=== PATIENT | female | born 1980 | race American Indian/Alaskan Native ===

== ENCOUNTER 2016-09-26 16:01 | Emergency (ER) | payer MEDICAID ==
[2016-09-26 16:09] VITALS: BMI 21.7
[2016-09-26 16:22] VITALS: TEMP 98.5
[2016-09-26] MEDS ORDERED: Sodium Chloride 0.9% 1,000 ML IV ONE (16:44)
[2016-09-26] MEDS ORDERED: Aspirin 325 mg EC Tablets PO STA (16:44)
[2016-09-26 17:17] LABS: BASO # 0.1 K/uL (0.0-0.2); BASO % 0.9 % (0.0-2.0); EOS # 0.1 K/uL (0.0-0.7); EOS % 1.1 % (0.0-4.0); LYMPH # 2.2 K/uL (1.0-4.3); LYMPH % 38.9 % (20.0-40.0); MEAN CELL VOLUME 87.9 fL (81.0-99.0); MEAN CORPUSCULAR HEMOGLOBIN 29.5 pg (27.0-31.0); MEAN CORPUSCULAR HGB CONC 33.5 g/dL (33.0-37.0); MEAN PLATELET VOLUME 9.4 fL (7.2-11.7); MONO # 0.6 K/uL (0.0-0.8); MONO % 9.9 % (0.0-10.0); RED CELL DISTRIBUTION WIDTH 14.4 % (11.5-14.5); WHITE BLOOD COUNT 5.6 K/uL (4.8-10.8)
--- NOTE | 2016-09-26 17:18 | RAD ---
HISTORY: chest pain COMPARISON: No prior. TECHNIQUE: Chest PA and lateral FINDINGS: LUNGS: No active pulmonary disease. PLEURA: No significant pleural effusion identified. No pneumothorax apparent. CARDIOVASCULAR: Normal. Mild dextroscoliosis centered in the lower thoracic region. OSSEOUS STRUCTURES: VISUALIZED UPPER ABDOMEN: Normal. OTHER FINDINGS: None. IMPRESSION: No acute cardiopulmonary disease.
[2016-09-26 17:26] LABS: CHLORIDE 101 mmol/L (98-107)
[2016-09-26 17:27] LABS: SODIUM 136 mmol/L (132-148)
[2016-09-26] MEDS ORDERED: Sodium Chloride 0.9% 1,000 ML ONE (17:28)
[2016-09-26] MEDS ORDERED: Aspirin 325 mg EC Tablets PO ONE (17:28)
[2016-09-26 17:29] LABS: ALB/GLOB RATIO 1.3 (1.0-2.1); AST/SGOT 19 U/L (14-36); BILIRUBIN,TOTAL 0.9 mg/dL (0.2-1.3); CARBON DIOXIDE 26 mmol/L (22-30); GFR AFRICAN-AMERICAN > 60; TOTAL PROTEIN 7.8 g/dL (6.3-8.3)
[2016-09-26 17:30] LABS: ALKALINE PHOSPHATASE 64 U/L (38-126); ALT/SGPT 23 U/L (9-52); BLOOD UREA NITROGEN 15 mg/dL (7-17); CALCIUM 9.2 mg/dl (8.6-10.4); GLUCOSE,RANDOM 70 mg/dL (65-105)
[2016-09-26 17:31] LABS: INR 1.1
[2016-09-26 17:33] LABS: RBC URINE 11 /hpf (0-3); URINE BILIRUBIN NEGATIVE (NEGATIVE); URINE BLOOD 1+ (NEGATIVE); URINE COLOR Yellow (YELLOW); URINE GLUCOSE (UA) NORMAL (Normal); URINE KETONE NEGATIVE (NEGATIVE); URINE LEUKOCYTE ESTERASE NEG Leu/uL (Negative); URINE PROTEIN NEGATIVE (NEGATIVE); URINE UROBILINOGEN NORMAL mg/dL (0.2-1.0); WBC URINE 1 /hpf (0-5)
--- NOTE | 2016-09-26 17:39 | C.PDOC ---
History Of Present Illness 36 year old patient, with a past medical history of hypertension, presents to the emergency department complaining of numbness to left arm for the past 4 days. Patient states the numbness was in her leg yesterday. Today, she reports intermittent tingling and numb sensation radiates from her left hand finger tips to her shoulder and into her neck. Patient also complains of left side neck pain. Patient denies fever, injury, headache, dizziness, bruising, rash, nausea, or vomiting. Of note patient reports 2 losses in the family (cousins) recently related to cardiac issues and patient is concerned for health. Time Seen by Provider: 09/26/16 16:26 Chief Complaint (Nursing): Upper Extremity Problem/Injury History Per: Patient History/Exam Limitations: no limitations Onset/Duration Of Symptoms: Days (1) Current Symptoms Are (Timing): Still Present Quality: "Pain", Other (tingling sensation; numbness) Severity: Moderate Pain Scale Rating Of: 4 Recent travel outside of the [place]: No Past Medical History Reviewed: Historical Data, Nursing Documentation, Vital Signs Vital Signs: Last Vital Signs Temp 98.5 F 09/26/16 18:07 Pulse 54 L 09/26/16 18:07 Resp 20 09/26/16 18:07 BP 150/84 09/26/16 18:07 Pulse Ox 100 09/26/16 18:07 - Medical History PMH: HTN Surgical History: Appendectomy Family History: States: Hypertension - Social History Hx Alcohol Use: Yes Hx Substance Use: No - Immunization History Hx Tetanus Toxoid Vaccination: No Hx Influenza Vaccination: No Hx Pneumococcal Vaccination: No Review Of Systems Constitutional: Negative for: Fever, Other (injury) Eyes: Negative for: Vision Change Cardiovascular: Positive for: Other (chest discomfort). Negative for: Chest Pain, Palpitations Respiratory: Positive for: Shortness of Breath Gastrointestinal: Negative for: Nausea, Vomiting Musculoskeletal: Positive for: Neck Pain, Shoulder Pain (left ), Arm Pain (left) Skin: Negative for: Rash, Bruising Neurological: Positive for: Numbness. Negative for: Headache, Dizziness Physical Exam - Physical Exam Appears: Non-toxic, No Acute Distress Skin: Warm, Dry, Other ((-)erythema or swelling to extremity) Head: Atraumatic, Normacephalic Eye(s): bilateral: Normal Inspection, PERRL, EOMI Ear(s): Bilateral: Normal Nose: Normal Oral Mucosa: Moist Throat: Normal, No Erythema, No Exudate Neck: Normal ROM (with pain), Paracervical Tenderness (left side greater than righ), Supple, Other Chest: Symmetrical Cardiovascular: Rhythm Regular Respiratory: Normal Breath Sounds, No Rales, No Rhonchi, No Wheezing Gastrointestinal/Abdominal: Soft, No Tenderness Back: Normal Inspection, No CVA Tenderness Extremity: Bilateral: No Pedal Edema, Normal Color And Temperature, Normal ROM Neurological/Psych: Oriented x3, Normal Speech, Normal Cognition, Normal Cranial Nerves, No Cerebellar Signs, Normal Motor, Normal Sensation Gait: Steady ED Course And Treatment - Laboratory Results Result Diagrams: 09/26/16 17:09 09/26/16 17:09 Lab Interpretation: No Acute Changes ECG: Interpreted By Me, Viewed By Me ECG Rhythm: Sinus Bradycardia ECG Interpretation: No Acute Changes Rate From EC (bpm) O2 Sat by Pulse Oximetry: 99 (RA) Pulse Ox Interpretation: Normal - Radiology CXR: Interpreted by Me, Viewed By Me CXR Interpretation: Yes: No Acute Disease - Other Rad C-spine X-Ray: Interpreted by Me, Viewed By Me, Read By Radiologist ( Dr. Garnett, Scott LUNA) Interpretation: FINDINGS: Current study reveals no acute compression fractures no retropulsed fragments. The vertebral bodies exhibit normal stature. There is reversal of the normal cervical lordosis however vertebral bodies otherwise exhibit normal alignment. Facets normally aligned. Mild multilevel degenerative spondylosis is present, most notably affecting C6-C7, C5-C6 and to a lesser degree C4-C5 levels. Changes include varying degrees of mild disc space narrowing with small anterior and posterior osteophyte formation former slightly larger than latter. . Prevertebral soft tissues appear grossly unremarkable. IMPRESSION: No acute fracture seen. Mild reversal of the normal cervical lordosis. Mild multilevel degenerative spondylosis as above Medical Decision Making Medical Decision Making: Impression: 36 year old patient with numbness in left arm and neck pain Plan: * EKG * Labs * Chest XR * Ecotrin, IV fluids * C-spine XR Re-assessment: EKG shows Sinus bradycardia, no acute findings Labs reviewed and unremarkable, negative troponin and low suspicion for ACS CXR was normal C-spine shows no acute compression fractures, no retropulsed fragments. The vertebral bodies exhibit normal stature. There is reversal of the normal cervical lordosis however vertebral bodies otherwise exhibit normal alignment. Facets normally aligned. Mild multilevel degenerative spondylosis is present, most notably affecting C6-C7, C5-C6 and to a lesser degree C4-C5 levels. Changes include varying degrees of mild disc space narrowing with small anterior and posterior osteophyte formation former slightly larger than latter. XRay findings consistent with multilevel degenerative spondylosis and likely contributing to radicular pain. Upon reevaluation patient resting comfortable in no acute distress. She denies any chest pain, SOB or any current numbness sensation in extremities. Patient has no focal deficits. Discussed results with patient, and copy of report was provided. Patient feels comfortable going home and will be discharged. Patient given follow up instructions with Dr Orozco. Instructed to return to ER if symptoms worsen or new symptoms arise. Disposition Counseled Patient/Family Regarding: Need For Followup, Rx Given - Disposition Referrals: Oli Orozco MD [Medical Doctor] - Disposition: HOME/ ROUTINE Disposition Time: 17:52 Condition: STABLE Additional Instructions: All your lab work was normal. Chest xray was normal. Cervical spine xray shows spondylosis and degenerative disk disease. Recommend taking analgesics for pain relief and to follow up with your primary doctor Dr Orozco Instructions: Cervical Spinal Stenosis (ED) - POA Present On Arrival: None - Clinical Impression Clinical Impression: Cervical spondylosis, Cervical radiculopathy - PA / BOTTOM POLISHER / Resident Statement MD/DO has reviewed & agrees with the documentation as recorded. - Scribe Statement The provider has reviewed the documentation as recorded by the Scribe Princess Montgomery All medical record entries made by the Scribe were at my direction and personally dictated by me. I have reviewed the chart and agree that the record accurately reflects my personal performance of the history, physical exam, medical decision making, and the department course for this patient. I have also personally directed, reviewed, and agree with the discharge instructions and disposition.
--- NOTE | 2016-09-26 17:45 | RAD ---
PROCEDURE: Cervical spine 09/26/2016 HISTORY: neck pain radiates down arm COMPARISON: No prior study available for comparison TECHNIQUE: AP, lateral, open-mouth views and extended montes views of the cervical spine performed. . FINDINGS: Current study reveals no acute compression fractures no retropulsed fragments. The vertebral bodies exhibit normal stature. There is reversal of the normal cervical lordosis however vertebral bodies otherwise exhibit normal alignment. Facets normally aligned. Mild multilevel degenerative spondylosis is present, most notably affecting C6-C7, C5-C6 and to a lesser degree C4-C5 levels. Changes include varying degrees of mild disc space narrowing with small anterior and posterior osteophyte formation former slightly larger than latter. . Prevertebral soft tissues appear grossly unremarkable. IMPRESSION: No acute fracture seen. Mild reversal of the normal cervical lordosis. Mild multilevel degenerative spondylosis as above
[2016-09-26 18:08] VITALS: BP 150/84; PULSE 54; RESP 20
[2016-09-26 18:19] VITALS: O2SAT 99
--- NOTE | 2016-09-29 08:01 | CARD ---
APPROVED REPORT EKG Measurement Heart [id number] <Conclusion> Sinus bradycardia Otherwise normal ECG
== END 2016-09-26 18:09 | disposition home or self-care (01) ==
LOC: C.ER 16:01
DX: M47.22 Other spondylosis with radiculopathy, cervical region (principal)
CPT/HCPCS: 71020; 72040; 80053; 81001; 84484; 84703; 85025; 85610; 85730; 93005; 96360; 99284; J7040

== ENCOUNTER 2017-01-14 09:36 | Inpatient (IN) | payer MEDICAID ==
[2017-01-14 09:37] VITALS: BMI 21.7
[2017-01-14] MEDS ORDERED: Enalaprilat 2.5 MG/2 ML IV ONE (10:46)
[2017-01-14] MEDS ORDERED: Enalaprilat 2.5 MG/2 ML ONE (10:53)
[2017-01-14 11:11] LABS: BASO # 0.1 K/uL (0.0-0.2); BASO % 0.9 % (0.0-2.0); EOS % 0.7 % (0.0-4.0); HEMOGLOBIN 12.6 g/dL (11.0-16.0); LYMPH # 2.2 K/uL (1.0-4.3); LYMPH % 37.2 % (20.0-40.0); MEAN CELL VOLUME 89.6 fL (81.0-99.0); MEAN CORPUSCULAR HEMOGLOBIN 29.3 pg (27.0-31.0); MEAN CORPUSCULAR HGB CONC 32.7 g/dL (33.0-37.0); MEAN PLATELET VOLUME 9.1 fL (7.2-11.7); MONO # 0.3 K/uL (0.0-0.8); MONO % 5.7 % (0.0-10.0); NEUT # 3.2 K/uL (1.8-7.0); NEUT % 55.5 % (50.0-75.0); RBC 4.3 Mil/uL (3.80-5.20); RED CELL DISTRIBUTION WIDTH 14.6 % (11.5-14.5); WHITE BLOOD COUNT 5.8 K/uL (4.8-10.8)
[2017-01-14 11:24] LABS: ALBUMIN 4.3 g/dL (3.5-5.0)
[2017-01-14 11:27] LABS: ALB/GLOB RATIO 1.2 (1.0-2.1); AST/SGOT 36 U/L (14-36); BLOOD UREA NITROGEN 9 mg/dL (7-17); GFR AFRICAN-AMERICAN > 60; GFR NON-AFRICAN AMERICAN > 60
[2017-01-14 11:28] LABS: ALT/SGPT < 6 U/L (9-52); CALCIUM 9.3 mg/dl (8.6-10.4); MAGNESIUM 2.1 mg/dL (1.6-2.3)
[2017-01-14] MEDS ORDERED: Iodixanol 320 MG/ML 100 ML BOTTLE IV ONE (12:05)
--- NOTE | 2017-01-14 14:02 | CT ---
PROCEDURE: CT Angiography of the neck and brain dated 01/14/2017. HISTORY: Left-sided neck pain. , hypertensive, r/o dissection COMPARISON: No prior TECHNIQUE: Contiguous axial images of the neck were obtained from the level of the skull-base to the superior mediastinum in the arteriographic phase of enhancement. Coronal and sagittal reformats or also generated. IV contrast dose: 100 cc of Visipaque 320 Radiation Dose - DLP: 454.85 mGy-cm This CT exam was performed using one or more of the following dose reduction techniques: Automated exposure control, adjustment of the mA and/or kV according to patient size, and/or use of iterative reconstruction technique. FINDINGS: Visualized portions of the aortic arch are widely patent. No significant atherosclerotic disease. The origins of the great vessels are widely patent as well. The right and left common carotid arteries, carotid bifurcations and internal carotid arteries are widely patent. No evidence of occlusion significant stenosis or dissection. The distal internal carotid arteries including the petrous, cavernous and supraclinoid segments also widely patent. The right and left vertebral arteries are widely patent throughout, left-sided which is only minimally larger in caliber/more dominant than the right. No evidence of vertebral artery dissection. Basilar artery is patent. Evaluation of the intra cranial circulation reveals some minor asymmetry of the A1 segments right-sided which is larger in caliber/ more dominant than the left side ; felt to represent an anatomic variation. The middle cerebral arteries anterior and posterior cerebral arteries are also patent and relatively symmetric. No evidence of large aneurysm nor vascular malformation. Incidental note made of partially sella. There is mild reversal of the normal cervical lordosis which could be due to patient positioning gantry however underlying element of muscle spasm may contribute. Minor multilevel degenerative spondylosis of the cervical spine. Impression: The visualized anterior and posterior cervical circulation widely patent without evidence of occlusion significant stenosis or dissection. Minor multilevel degenerative spondylosis of the thoracic spine with reversal this of normal cervical lordosis. Partially empty sella.
--- NOTE | 2017-01-14 16:20 | C.PDOC ---
History Of Present Illness Pt c/o left neck pain radiating down LUE. Time Seen by Provider: 01/14/17 09:47 History Per: Patient Onset/Duration Of Symptoms: Days (1) Current Symptoms Are (Timing): Still Present Quality Of Discomfort: "Pain" Severity: Moderate Exacerbating Factor(s): Turning, Movement Additional History Per: Prior Records Past Medical History Reviewed: Historical Data, Nursing Documentation, Vital Signs Vital Signs: Last Vital Signs Temp 98.3 F 01/14/17 14:12 Pulse 51 L 01/14/17 15:37 Resp 14 01/14/17 15:37 BP 151/96 H 01/14/17 15:37 Pulse Ox 100 01/14/17 15:37 - Medical History PMH: HTN Surgical History: Appendectomy Family History: States: Hypertension - Social History Hx Alcohol Use: Yes Hx Substance Use: No - Immunization History Hx Tetanus Toxoid Vaccination: No Hx Influenza Vaccination: No Hx Pneumococcal Vaccination: No Review Of Systems Except As Marked, All Systems Reviewed And Found Negative. Constitutional: Negative for: Fever, Weakness ENT: Negative for: Throat Pain, Throat Swelling Cardiovascular: Negative for: Chest Pain Respiratory: Negative for: Shortness of Breath Gastrointestinal: Negative for: Vomiting, Abdominal Pain Musculoskeletal: Positive for: Neck Pain Skin: Negative for: Rash Neurological: Negative for: Weakness, Seizures, Altered Mental Status, Headache Physical Exam - Physical Exam Appears: Non-toxic, No Acute Distress Skin: Normal Color, Warm, Dry, No Rash Head: Atraumatic, Normacephalic Eye(s): bilateral: PERRL, EOMI Neck: Decreased ROM (Pt unable to turn her head to the left due to pain), Paracervical Tenderness (left) Cardiovascular: Rhythm Regular (bradycardia) Respiratory: Normal Breath Sounds, No Accessory Muscle Use Gastrointestinal/Abdominal: Soft, No Tenderness Back: No CVA Tenderness Extremity: Normal ROM Pulses: Left Radial: Normal, Right Radial: Normal Neurological/Psych: Oriented x3, Normal Speech, Normal Motor, Normal Sensation ED Course And Treatment - Laboratory Results Result Diagrams: 01/14/17 10:55 01/14/17 10:55 Lab Interpretation: No Acute Changes ECG: Interpreted By Me, Viewed By Me ECG Rhythm: Sinus Bradycardia, Nonspecific Changes ECG Interpretation: Abnormal Rate From EC O2 Sat by Pulse Oximetry: 100 Pulse Ox Interpretation: Normal - CT Scan/US CTA of neck Other Rad Studies (CT/US): Read By Radiologist, Radiology Report Reviewed CT/US Interpretation: Impression: The visualized anterior and posterior cervical circulation widely patent without evidence of occlusion significant stenosis or dissection. Minor multilevel degenerative spondylosis of the thoracic spine with reversal this of normal cervical lordosis. Partially empty sella. Progress Note: Pt was found to be hypertensive and bradycardic even though she states that she already took her BP medicine today (Amlodipine 10mg). Progress - Interventions Interventions:: Observation - Medications Administered Oral: Antihypertensive Intravenous: Antihypertensive - Data Reviewed Data Reviewed: Lab, Diagnostic imaging, EKG, Old records - Patient Status Patient status: Partially improved - Critical Care Citical Care: Excluding Proc Time Critical Care Time: 60 minutes - Continuity of Care Discussed patient case with:: Patient, Family-HIPPA compliant, ED Nurse, On- call PMD-pt unassigned - Patient Plan Patient Plan: Admission, Telemetry Disposition Discussed With : Li Rainey Comment: She accepted pt on her service. Doctor Will See Patient In The: Hospital Counseled Patient/Family Regarding: Studies Performed, Diagnosis - Disposition Disposition: HOSPITALIZED Disposition Time: 16:23 Condition: GUARDED - Clinical Impression Clinical Impression: Neck pain on left side, Hypertensive urgency, Sinus bradycardia, persistent
--- NOTE | 2017-01-15 10:30 | CP.PCM.HP ---
History of Present Illness - History of Present Illness History of Present Illness: pt admited for left side neck pain raditing to left side arm and chest had severe htn Present on Admission - Present on Admission Any Indicators Present on Admission: No Review of Systems - Review of Systems Systems not reviewed;Unavailable: Acuity of Condition - Constitutional Constitutional: As Per HPI - EENT Eyes: As Per HPI Ears: As Per HPI Nose/Mouth/Throat: As Per HPI - Breasts Breasts: As Per HPI - Cardiovascular Cardiovascular: As Per HPI, Chest Pain at Rest - Respiratory Respiratory: As Per HPI - Gastrointestinal Gastrointestinal: As Per HPI - Genitourinary Genitourinary: As Per HPI - Reproductive: Female Reproductive:Female: As Per HPI - Menstruation Menstruation: As Per HPI - Musculoskeletal Musculoskeletal: As Per HPI - Integumentary Integumentary: As Per HPI - Neurological Neurological: Dizziness, Headaches - Endocrine Endocrine: As Per HPI - Hematologic/Lymphatic Hematologic: As Per HPI Past Patient History - Infectious Disease Hx of Infectious Diseases: None - Past Medical History & Family History Past Medical History?: Yes - Past Social History Smoking Status: Light Smoker < 10 Cigarettes Daily - CARDIAC Hx Hypertension: Yes - MUSCULOSKELETAL/RHEUMATOLOGICAL Hx Falls: No - PSYCHIATRIC Hx Substance Use: No - SURGICAL HISTORY Hx Appendectomy: Yes - ANESTHESIA Hx Anesthesia: Yes Hx Anesthesia Reactions: No Hx Malignant Hyperthermia: No Meds Allergies/Adverse Reactions: Allergies Allergy/AdvReac Type Severity Reaction Status Date / Time No Known Allergies Allergy Verified 09/26/16 16:09 Physical Exam - Constitutional Appears: Non-toxic - Head Exam Head Exam: NORMAL INSPECTION - Eye Exam Eye Exam: Normal appearance Pupil Exam: NORMAL ACCOMODATION - ENT Exam ENT Exam: Mucous Membranes Moist - Neck Exam Neck exam: Positive for: Normal Inspection - Respiratory Exam Respiratory Exam: Clear to Auscultation Bilateral - Cardiovascular Exam Cardiovascular Exam: REGULAR RHYTHM - GI/Abdominal Exam GI & Abdominal Exam: Normal Bowel Sounds - Rectal Exam Rectal Exam: NORMAL INSPECTION - Back Exam Back exam: NORMAL INSPECTION - Neurological Exam Neurological exam: Normal Gait - Skin Skin Exam: Normal Color Results - Vital Signs Recent Vital Signs: Last Vital Signs Temp 97.4 F L 01/15/17 07:00 Pulse 61 01/15/17 07:00 Resp 20 01/15/17 07:00 BP 161/70 H 01/15/17 07:00 Pulse Ox 96 01/15/17 07:00 - Labs Result Diagrams: 01/14/17 10:55 01/14/17 10:55 Assessment & Plan - Assessment and Plan (Free Text) Assessment: ac neck and chest pain dizziness severe htn Plan: as per orders - Date & Time Date: 01/15/17 Time: 10:32
[2017-01-15 14:30] LABS: CK-MB < 0.22 ng/mL (0.0-3.38)
[2017-01-16 09:35] VITALS: BP 141/84; PULSE 80; RESP 20; TEMP 98.3; O2SAT 97
--- NOTE | 2017-01-16 13:16 | CP.PCM.DIS ---
Provider - Provider Date of Admission: 01/14/17 16:24 Attending physician: Li Rainey MD Primary care physician: pt came in for [place] dizziness and neck pain had very high bp now controled fees fine ct negative for any norro bv or ischemia or hge vss lung cleare [id number] abd soft l l no ioeadeama lab reviewed ass uncontraoled htn improved will d/c pt on same medications taking here f/u in one weeke by her md Time Spent in preparation of Discharge (in minutes): 30 Hospital Course - Lab Results Lab Results: Most Recent Lab Values WBC 5.8 K/uL (4.8-10.8) 01/14/17 10:55 RBC 4.30 Mil/uL (3.80-5.20) 01/14/17 10:55 Hgb 12.6 g/dL (11.0-16.0) 01/14/17 10:55 Hct 38.6 % (34.0-47.0) 01/14/17 10:55 MCV 89.6 fL (81.0-99.0) 01/14/17 10:55 MCH 29.3 pg (27.0-31.0) 01/14/17 10:55 MCHC 32.7 g/dL (33.0-37.0) L 01/14/17 10:55 RDW 14.6 % (11.5-14.5) H 01/14/17 10:55 Plt Count 254 K/uL (130-400) 01/14/17 10:55 MPV 9.1 fL (7.2-11.7) 01/14/17 10:55 Neut % (Auto) 55.5 % (50.0-75.0) 01/14/17 10:55 Lymph % (Auto) 37.2 % (20.0-40.0) 01/14/17 10:55 Wright % (Auto) 5.7 % (0.0-10.0) 01/14/17 10:55 Eos % (Auto) 0.7 % (0.0-4.0) 01/14/17 10:55 Baso % (Auto) 0.9 % (0.0-2.0) 01/14/17 10:55 Neut # 3.2 K/uL (1.8-7.0) 01/14/17 10:55 Lymph # 2.2 K/uL (1.0-4.3) 01/14/17 10:55 Wright # 0.3 K/uL (0.0-0.8) 01/14/17 10:55 Eos # 0.0 K/uL (0.0-0.7) 01/14/17 10:55 Baso # 0.1 K/uL (0.0-0.2) 01/14/17 10:55 Sodium 136 mmol/L (132-148) 01/14/17 10:55 Potassium 5.4 mmol/L (3.6-5.2) H 01/14/17 10:55 Chloride 103 mmol/L (98-107) 01/14/17 10:55 Carbon Dioxide 26 mmol/L (22-30) 01/14/17 10:55 Anion Gap 13 (10-20) 01/14/17 10:55 BUN 9 mg/dL (7-17) 01/14/17 10:55 Creatinine 0.8 MG/DL (0.7-1.2) 01/14/17 10:55 Est GFR ( Amer) > 60 01/14/17 10:55 Est GFR (Non-Af Amer) > 60 01/14/17 10:55 Random Glucose 88 mg/dL (65-105) 01/14/17 10:55 Calcium 9.3 mg/dl (8.6-10.4) 01/14/17 10:55 Magnesium 2.1 mg/dL (1.6-2.3) 01/14/17 10:55 Total Bilirubin 1.3 mg/dL (0.2-1.3) 01/14/17 10:55 AST 36 U/L (14-36) D 01/14/17 10:55 ALT < 6 U/L (9-52) L D 01/14/17 10:55 Alkaline Phosphatase 64 U/L (38-126) 01/14/17 10:55 Total Creatine Kinase 88 U/L (30-135) 01/15/17 14:04 CK-MB (Mass) < 0.22 ng/mL (0.0-3.38) 01/15/17 14:04 Troponin I, Quant < 0.0120 ng/mL (0.00-0.120) 01/15/17 14:04 Total Protein 7.9 g/dL (6.3-8.3) 01/14/17 10:55 Albumin 4.3 g/dL (3.5-5.0) 01/14/17 10:55 Globulin 3.6 gm/dL (2.2-3.9) 01/14/17 10:55 Albumin/Globulin Ratio 1.2 (1.0-2.1) 01/14/17 10:55 Discharge Exam - Head Exam Head Exam: NORMAL INSPECTION Discharge Plan - Follow Up Plan Condition: GUARDED Disposition: HOME/ ROUTINE
--- NOTE | 2017-01-17 10:50 | CARD ---
APPROVED REPORT EKG Measurement Heart [id number] <Conclusion> Sinus bradycardia Possible Left atrial enlargement Septal infarct, age undetermined Abnormal ECG
--- NOTE | 2017-01-17 13:40 | CARD ---
APPROVED REPORT EKG Measurement Heart [id number] ID [id number] <Conclusion> Sinus bradycardia Possible Left atrial enlargement Borderline ECG
== END 2017-01-16 15:00 | disposition home or self-care (01) | DRG 134 ==
LOC: C.ER 09:36 → C.9E 16:24 → C.6T 17:57
PROVIDERS: ADMIT Internal Medicine; ATTEND Internal Medicine
DX: I16.0 Hypertensive urgency (principal); R00.1 Bradycardia, unspecified; I10 Essential (primary) hypertension; F17.210 Nicotine dependence, cigarettes, uncomplicated; R07.9 Chest pain, unspecified; M54.2 Cervicalgia

== ENCOUNTER 2017-06-21 19:06 | Emergency (ER) | payer BC, MEDICAID ==
[2017-06-21 19:06] VITALS: BMI 21.7
[2017-06-21 19:12] VITALS: PULSE 78; RESP 20; TEMP 97.7; O2SAT 100
--- NOTE | 2017-06-21 19:39 | C.PDOC ---
Time Seen by Provider: 06/21/17 19:18 Chief Complaint (Nursing): ENT Problem PMH - Family History Family History: States: Hypertension - Immunization History Hx Tetanus Toxoid Vaccination: No Hx Influenza Vaccination: No Hx Pneumococcal Vaccination: No ED Course And Treatment O2 Sat by Pulse Oximetry: 100 Disposition Counseled Patient/Family Regarding: Diagnosis, Need For Followup, Rx Given - Disposition Referrals: Lc Dove MD [Staff Provider] - Disposition: HOME/ ROUTINE Disposition Time: 19:33 Condition: STABLE Additional Instructions: Please follow up with ENT Tylenol and motrin if pain Please take your BP meds when you reach home Return to ER if worse Instructions: Earache (ED) Forms: [employer] ([place]) - Clinical Impression Clinical Impression: Otalgia of left ear
[2017-06-21 20:30] VITALS: BP 180/103
--- NOTE | 2017-06-22 01:16 | C.PDOC ---
History Of Present Illness 37 year old female presents to the ER with a complaint of left ear discomfort that she describes as a pulsating feeling. Denies fever, ear drainage, headache , or tinnitus. Time Seen by Provider: 06/21/17 19:18 Chief Complaint (Nursing): ENT Problem History Per: Patient History/Exam Limitations: no limitations Onset/Duration Of Symptoms: Hrs Current Symptoms Are (Timing): Still Present Recent travel outside of the [place]: No Past Medical History Reviewed: Historical Data, Nursing Documentation, Vital Signs Vital Signs: Last Vital Signs Temp 97.7 F 06/21/17 19:08 Pulse 78 06/21/17 19:08 Resp 20 06/21/17 19:08 BP 180/103 H 06/21/17 20:00 Pulse Ox 100 06/22/17 02:10 - Medical History PMH: HTN Surgical History: Appendectomy Family History: States: Hypertension - Social History Hx Alcohol Use: Yes (socially) Hx Substance Use: No - Immunization History Hx Tetanus Toxoid Vaccination: No Hx Influenza Vaccination: No Hx Pneumococcal Vaccination: No Review Of Systems Constitutional: Negative for: Fever, Chills ENT: Positive for: Other (Ear discomfort). Negative for: Ear Discharge Neurological: Negative for: Headache Physical Exam - Physical Exam Appears: Non-toxic, No Acute Distress Skin: Normal Color, Warm, Dry Head: Atraumatic, Normacephalic Eye(s): bilateral: Normal Inspection Ear(s): Bilateral: Normal (no pre or post auricular adenopathy or ear swelling) Nose: Normal Oral Mucosa: Moist Throat: Normal, No Erythema Neck: Normal, Supple ED Course And Treatment O2 Sat by Pulse Oximetry: 100 (Room air) Pulse Ox Interpretation: Normal Progress Note: Patient is stable and in no distress;PE normal. Pt found to have elevated BP. pt is chronic hypertensive and has not taken her meds today. Pt informed that BP is very elevated and pt states she has all meds home and prefers to go home to take her meds. Pt understands the risks of noncompliance to BP meds. Pt will be discharged home and advise to follow up with PMD/ ENT for further evaluation. 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 - Scribe Statement The provider has reviewed the documentation as recorded by the Scribe Hayden Cadet All medical record entries made by the Scribe were at my direction and personally dictated by me. I have reviewed the chart and agree that the record accurately reflects my personal performance of the history, physical exam, medical decision making, and the department course for this patient. I have also personally directed, reviewed, and agree with the discharge instructions and disposition.
== END 2017-06-21 20:31 | disposition home or self-care (01) ==
LOC: C.ER 19:06
DX: H92.02 Otalgia, left ear (principal); I10 Essential (primary) hypertension

== ENCOUNTER 2018-07-06 14:01 | Emergency (ER) | payer BC, MEDICAID ==
[2018-07-06 14:01] VITALS: BMI 21.7
[2018-07-06 14:21] VITALS: TEMP 98
--- NOTE | 2018-07-06 15:18 | C.PDOC ---
History Of Present Illness 38 years old female presents to ED for complaints of suprapubic abdominal pain associated with nausea, generalized weakness, and pain during intercourse that began 3 days ago. Patient describes pain radiates to lower back and worsens with movement. Denies fever, vomiting, diarrhea, or any other complaints. Patient also states she saw her PMD recently but was told she had nothing wrong. Patient also states last month she got her Menstrual Cycle twice. Time Seen by Provider: 07/06/18 14:29 Chief Complaint (Nursing): Abdominal Pain History Per: Patient History/Exam Limitations: no limitations Onset/Duration Of Symptoms: Days Current Symptoms Are (Timing): Still Present Location Of Pain/Discomfort: Suprapubic Radiation Of Pain To:: Back Associated Symptoms: Nausea. denies: Fever, Chills, Vomiting, Diarrhea Exacerbating Factors: None Alleviating Factors: None Last Bowel Movement: Today Recent travel outside of the [place]: No Abnormal Vaginal Bleeding: No Past Medical History Reviewed: Historical Data, Nursing Documentation, Vital Signs Vital Signs: Last Vital Signs Temp 98.0 F 07/06/18 14:20 Pulse 50 L 07/06/18 14:20 Resp 18 07/06/18 14:20 BP 198/93 H 07/06/18 14:20 Pulse Ox 100 07/06/18 14:20 - Medical History PMH: HTN Surgical History: Appendectomy Family History: States: Hypertension - Social History Hx Alcohol Use: Yes (socially) Hx Substance Use: Yes - Immunization History Hx Tetanus Toxoid Vaccination: No Hx Influenza Vaccination: No Hx Pneumococcal Vaccination: No Review Of Systems Constitutional: Positive for: Weakness. Negative for: Fever, Chills Gastrointestinal: Positive for: Nausea, Abdominal Pain. Negative for: Vomiting, Diarrhea Skin: Negative for: Rash Neurological: Negative for: Weakness, Numbness Physical Exam - Physical Exam Appears: Non-toxic, No Acute Distress Skin: Normal Color, Warm, Dry, No Rash Head: Atraumatic, Normacephalic Eye(s): bilateral: Normal Inspection, PERRL, EOMI Oral Mucosa: Moist Throat: No Erythema, No Exudate Neck: Normal ROM, Supple Chest: Symmetrical, No Tenderness Cardiovascular: Rhythm Regular, No Murmur Respiratory: Normal Breath Sounds, No Rales, No Rhonchi, No Wheezing Gastrointestinal/Abdominal: Bowel Sounds (Active ), Soft, Tenderness (Suprapubic ) Back: Normal Inspection, No CVA Tenderness Pelvic: Normal External Exam, No Vaginal Bleeding, Vaginal Discharge (scant discharge), Other (Slight CMT. 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 ) Extremity: Normal ROM, No Swelling Extremity: Bilateral: Atraumatic, Normal Color And Temperature, Normal ROM Pulses: Left Radial: Normal, Right Radial: Normal Neurological/Psych: Oriented x3, Normal Speech Gait: Steady ED Course And Treatment - Laboratory Results Result Diagrams: 07/06/18 16:04 07/06/18 16:04 O2 Sat by Pulse Oximetry: 100 (RA) Pulse Ox Interpretation: Normal Disposition - Disposition Referrals: Farrukh Carbajal MD [Staff Provider] - Chichi Poole MD [Staff Provider] - Disposition: HOME/ ROUTINE Disposition Time: 18:15 Condition: STABLE Additional Instructions: Follow up with the medical doctor within 1-2 days without fail. Return if worsened. 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 - Scribe Statement The provider has reviewed the documentation as recorded by the Elier Dodd All medical record entries made by the Elier were at my direction and personally dictated by me. I have reviewed the chart and agree that the record accurately reflects my personal performance of the history, physical exam, medical decision making, and the department course for this patient. I have also personally directed, reviewed, and agree with the discharge instructions and disposition.
[2018-07-06 16:11] LABS: BASO # 0.1 K/uL (0.0-0.2); BASO % 0.7 % (0.0-2.0); EOS # 0.1 K/uL (0.0-0.7); HEMOGLOBIN 10.1 g/dL (11.0-16.0); LYMPH # 2.3 K/uL (1.0-4.3); LYMPH % 32.9 % (20.0-40.0); MEAN CELL VOLUME 84.7 fL (81.0-99.0); MEAN CORPUSCULAR HEMOGLOBIN 26.9 pg (27.0-31.0); MEAN CORPUSCULAR HGB CONC 31.8 g/dL (33.0-37.0); MEAN PLATELET VOLUME 9.4 fL (7.2-11.7); MONO # 0.6 K/uL (0.0-0.8); NEUT # 3.9 K/uL (1.8-7.0); NEUT % 56.4 % (50.0-75.0); RBC 3.74 Mil/uL (3.80-5.20); RED CELL DISTRIBUTION WIDTH 15.9 % (11.5-14.5); WHITE BLOOD COUNT 6.9 K/uL (4.8-10.8)
[2018-07-06 16:12] LABS: SQUAMOUS EPITHIAL 2 /hpf (0-5); URINE BILIRUBIN NEGATIVE (NEGATIVE); URINE BLOOD NEGATIVE (NEGATIVE); URINE CLARITY Clear (Clear); URINE COLOR Yellow (YELLOW); URINE GLUCOSE (UA) NORMAL (Normal); URINE LEUKOCYTE ESTERASE NEG Leu/uL (Negative); URINE PROTEIN NEGATIVE (NEGATIVE); URINE UROBILINOGEN NORMAL mg/dL (0.2-1.0)
[2018-07-06 16:13] LABS: HCG,QUALITATIVE URINE NEGATIVE (NEGATIVE)
[2018-07-06 16:36] LABS: ALB/GLOB RATIO 1.6 (1.0-2.1); ALBUMIN 4.4 g/dL (3.5-5.0); ALT/SGPT 13 U/L (9-52); AST/SGOT 19 U/L (14-36); BLOOD UREA NITROGEN 13 mg/dL (7-17); CALCIUM 9.1 mg/dl (8.6-10.4); GFR NON-AFRICAN AMERICAN > 60
--- NOTE | 2018-07-06 18:00 | US ---
Date of service: 07/06/2018 HISTORY: pelvic pain, r/o ovarian cyst, fibroids COMPARISON: None available. TECHNIQUE: Real-time transabdominal pelvic ultrasound was performed. In addition a transvaginal pelvic ultrasound was necessary to better depict pelvic anatomy. FINDINGS: UTERUS: Measures 10.2 x 5.7 x 5.5 cm. ENDOMETRIUM: Measures 1.2 cm in diameter. CERVIX: Cervix length measures approximately 3.6 cm. Nabothian cysts. RIGHT OVARY: Measures 3.0 x 1.9 x 2.8 cm. Blood flow is demonstrated. LEFT OVARY: Measures 3.2 x 2.7 x 3.1 cm. Blood flow is demonstrated. FREE FLUID: Small pelvic fluid. OTHER FINDINGS: None. IMPRESSION: Small fluid noted at the lower uterine segment. This examination is predicated on the assumption of a negative test. Correlate clinically.
[2018-07-06] MEDS ORDERED: cefTRIAXone 250 MG, Water For Injection 1 ML IM ONE (18:30)
[2018-07-06] MEDS: cefTRIAXone 250 MG, Water For Injection 20 ML IM ONE (18:37)
[2018-07-06 18:39] VITALS: BP 133/86; PULSE 69; RESP 16
[2018-07-07 21:57] VITALS: O2SAT 100
== END 2018-07-06 18:39 | disposition home or self-care (01) ==
LOC: C.ER 14:01
DX: N73.9 Female pelvic inflammatory disease, unspecified (principal); I10 Essential (primary) hypertension
CPT/HCPCS: 76830; 76856; 80053; 81001; 84703; 85025; 87086; 87491; 87591; 96372; 96374; 99285; J0696; J1885